=== PATIENT | female | born 1955 | race Caucasian/White ===

== ENCOUNTER 2019-06-18 07:45 | Inpatient (IN) | payer OTHER ==
[2019-06-18] MEDS ORDERED: Sodium Chloride 0.9% 10 ML Syringe FLUSH PRN ×2 (08:14→09:54)
[2019-06-18] MEDS ORDERED: Albuterol/Ipratropium 3.0-0.5 MG/3 ML Neb Soln NEB ONE (08:16)
[2019-06-18] MEDS ORDERED: methylPREDNISolone Sodium Succinate 125 MG/2 ML SDV IVPUSH ONE (08:17)
--- NOTE | 2019-06-18 09:03 | CR ---
Chest: Portable view of the chest was obtained. Comparison: Prior chest x-ray of 04/27/19. Heart size and mediastinum are within normal limits for portable technique. Mild tortuosity of the thoracic aorta is again noted. Lungs are clear with no acute parenchymal change. Bony structures are grossly intact. Impression: 1. Nothing acute is appreciated on portable chest x-ray. Diagnostic code #1
[2019-06-18] MEDS ORDERED: Iopamidol 755 Mg/ML 100 ML Bottle IVPUSH ONE (09:54)
[2019-06-18] MEDS ORDERED: Sodium Chloride 0.9% 100 ML IV SCH (10:00)
--- NOTE | 2019-06-18 10:23 | EDM.PDOC ---
ED HPI GENERAL MEDICAL PROBLEM - General Chief Complaint: Respiratory Problem Stated Complaint: SOB Time Seen by Provider: 06/18/19 08:05 Source of Information: Reports: Patient History Limitations: Reports: No Limitations - History of Present Illness INITIAL COMMENTS - FREE TEXT/NARRATIVE: The patient presents from Cardiac Rehab for shortness of breath. She has a history of COPD and she is on home oxygen but she is weaning herself down. Friday night she started having some aching in her chest. She noticed she was more short of breath yesterday and requiring more oxygen. She had to wear in to cardiac rehab and her oxygen saturations were low. She denies fever, chills, cough, congestion or runny nose. She has no abdominal pain, nausea or vomiting. She recently started having vaginal bleeding and was put on some control pills to control it. She is having a preop physical on Friday and the surgery is scheduled for the in [place] with Dr Gibbs. Her doctor is Dr Garrett. She is not having it here because anaesthesia thinks she is high risk because in the past she did not do well with one surgery. She denies swelling or pain in her legs. She has no history of DVT or PE. She does not smoke. Onset: Gradual Duration: Day(s): Location: Reports: Chest Quality: Reports: Ache Severity: Mild Improves with: Reports: None Worsens with: Reports: None Associated Symptoms: Reports: Chest Pain, Shortness of Breath. Denies: Cough, Fever/Chills, Headaches, Nausea/Vomiting Chest Pain Score (Numeric/FACES): 4 - Related Data Allergies Allergy/AdvReac Type Severity Reaction Status Date / Time No Known Allergies Allergy Verified 06/18/19 07:59 Home Meds: Home Meds Albuterol [IJD: Ventolin HFA] 1 - 2 puff INH Q4HR PRN 05/01/17 [History] Aspirin [Low Dose Aspirin EC] 81 mg PO DAILY 05/01/17 [History] Cholecalciferol (Vitamin D3) [Vitamin D3] 1,000 unit PO DAILY 05/01/17 [History] Hydrocodone/Acetaminophen [Hydrocodon-Acetaminophen 5-325] 1 - 2 tab PO Q12H PRN 05/01/17 [History] Levothyroxine 75 mcg PO ACBREAKFAST 05/01/17 [History] Loratadine [Allergy] 10 mg PO DAILY 05/01/17 [History] Losartan [Cozaar] 50 mg PO BID 05/01/17 [History] Tiotropium Br/Olodaterol HCl [Stiolto Respimat Inhal [place]] 2 puff IH DAILY 04/12 [History] Allopurinol [Zyloprim] 300 mg PO BID 05/05/19 [History] Empagliflozin [Jardiance] 25 mg PO DAILY 05/05/19 [History] Ezetimibe [Zetia] 20 mg PO DAILY 05/05/19 [History] Furosemide [Lasix] 20 mg PO DAILY 05/05/19 [History] Multivitamin [Poly-Vitamin] 1 tab PO DAILY 05/05/19 [History] Pravastatin [Pravachol] 20 mg PO DAILY 05/05/19 [History] Ranitidine [Zantac] 150 mg PO DAILY 05/05/19 [History] Albuterol [Ventolin HFA] 1 puff INH DAILY 06/18/19 [History] Past Medical History HEENT History: Reports: Allergic Rhinitis, Impaired Vision, Other (See Below) Other HEENT History: wears glasses, has upper denture Cardiovascular History: Reports: Heart Failure, Heart Murmur, High Cholesterol, Other (See Below) Other Cardiovascular History: aortic stenosis, angiogram x2 with no stents Respiratory History: Reports: COPD, Sleep Apnea Other Respiratory History: hypoventilation syndrome, cpap at night 2L Genitourinary History: Reports: UTI, Recurrent HR ADVISOR History: Reports: Musculoskeletal History: Reports: Arthritis, Other (See Below) Other Musculoskeletal History: carpal tunnel syndrome, gout Neurological History: Reports: Neuropathy, Diabetic Psychiatric History: Reports: Anxiety, Depression Endocrine/Metabolic History: Reports: Diabetes, Type II, Hypothyroidism Hematologic History: Reports: None Immunologic History: Reports: None Oncologic (Cancer) History: Reports: None Dermatologic History: Reports: Other (See Below) Other Dermatologic History: eczema - Past Surgical History Cardiovascular Surgical History: Reports: None Respiratory Surgical History: Reports: None GI Surgical History: Reports: Bariatric Procedure, Colonoscopy Female Surgical History: Reports: Section Endocrine Surgical History: Reports: Thyroidectomy Neurological Surgical History: Reports: None Musculoskeletal Surgical History: Reports: Joint Replacement Oncologic Surgical History: Reports: None Social & Family History - Tobacco Use Smoking Status *Q: Never Smoker Second Hand Smoke Exposure: No - Caffeine Use Caffeine Use: Reports: Coffee - Recreational Drug Use Recreational Drug Use: No ED ROS GENERAL - Review of Systems Review Of Systems: See Below Constitutional: Reports: No Symptoms HEENT: Reports: No Symptoms Respiratory: Reports: Shortness of Breath. Denies: Cough Cardiovascular: Reports: Chest Pain Endocrine: Reports: No Symptoms GI/Abdominal: Reports: No Symptoms : Reports: No Symptoms Musculoskeletal: Reports: No Symptoms ED EXAM, GENERAL - Physical Exam Exam: See Below Exam Limited By: No Limitations General Appearance: Alert, No Apparent Distress Ears: Normal External Exam Nose: Normal Inspection Head: Atraumatic, Normocephalic Neck: Normal Inspection Respiratory/Chest: No Respiratory Distress, Decreased Breath Sounds Cardiovascular: Regular Rate, Rhythm, No Edema, Systolic Murmur GI/Abdominal: Soft, Non-Tender, No Organomegaly, No Mass Back Exam: Normal Inspection Extremities: Normal Inspection EKG INTERPRETATION EKG Date: 06/18/19 Time: 07:59 Rhythm: NSR Rate (Beats/Min): 79 Amelia: Normal P-Wave: Present QRS: Normal ST-T: Normal QT: Normal EKG Interpretation Comments: Q waves in the anterior leads Course - Vital Signs Last Recorded V/S: Last Vital Signs Temp 97.9 F 06/18/19 07:50 Pulse 80 06/18/19 10:55 Resp 18 06/18/19 10:55 BP 120/60 06/18/19 10:55 Pulse Ox 92 L 06/18/19 10:55 - Orders/Labs/Meds Orders: Active Orders 24 hr Category Date Time Status Cardiac Monitoring [RC] . DIRECTED Care 06/18/19 08:14 Active EKG Documentation Completion [RC] STAT Care 06/18/19 08:14 Active Oxygen Therapy [RC] PRN Care 06/18/19 08:14 Active Peripheral IV Care [RC] . DIRECTED Care 06/18/19 08:15 Active RT Aerosol Therapy [RC] ASDIRECTED Care 06/18/19 08:16 Active Sodium Chloride 0.9% [Normal Saline] 100 ml Med 06/18/19 10:00 Active IV ASDIRECTED Sodium Chloride 0.9% [Saline Flush] Med 06/18/19 08:14 Active 10 ml FLUSH ASDIRECTED PRN Sodium Chloride 0.9% [Saline Flush] Med 06/18/19 09:54 Active 10 ml FLUSH ONETIME PRN Peripheral IV Insertion Adult [OM.PC] Stat Oth 06/18/19 08:14 Ordered Medication Orders Sodium Chloride (Normal Saline) 100 mls @ 75 mls/hr IV ASDIRECTED GAMALIEL Last Admin: 06/18/19 10:23 Dose: 75 mls/hr Sodium Chloride (Saline Flush) 10 ml FLUSH ASDIRECTED PRN PRN Reason: Keep Vein Open Last Admin: 06/18/19 08:25 Dose: 10 ml Sodium Chloride (Saline Flush) 10 ml FLUSH ONETIME PRN PRN Reason: IV FLUSH Last Admin: 06/18/19 10:23 Dose: 10 ml Labs: Laboratory Tests 06/18/19 06/18/19 06/18/19 Range/Units 08:25 08:25 08:25 WBC 8.20 (3.98-10.04) K/mm3 RBC 4.55 (3.98-5.22) M/mm3 Hgb 13.9 (11.2-15.7) gm/L Hct 43.8 (34.1-44.9) % MCV 96.3 H (79.4-94.8) fl MCH 30.5 (25.6-32.2) pg MCHC 31.7 L (32.2-35.5) g/dl RDW Std Deviation 53.1 H (36.4-46.3) fL Plt Count 273 (182-369) K/mm3 MPV 10.4 (9.4-12.3) fl Neut % (Auto) 69.7 (34.0-71.1) % Lymph % (Auto) 20.4 (19.3-51.7) % [place] % (Auto) 7.3 (4.7-12.5) % Eos % (Auto) 2.0 (0.7-5.8) Baso % (Auto) 0.5 (0.1-1.2) % Neut # (Auto) 5.72 (1.56-6.13) K/mm3 Lymph # (Auto) 1.67 (1.18-3.74) K/mm3 [place] # (Auto) 0.60 H (0.24-0.36) K/mm3 Eos # (Auto) 0.16 (0.04-0.36) K/mm3 Baso # (Auto) 0.04 (0.01-0.08) K/mm3 D-Dimer, Quantitative (0.19-0.50) mg/L Sodium 144 (136-145) mEq/L Potassium 4.5 (3.5-5.1) mEq/L Chloride 108 H (98-107) mEq/L Carbon Dioxide 31 (21-32) mEq/L Anion Gap 9.5 (5-15) BUN 16 (7-18) mg/dL Creatinine 1.0 (0.55-1.02) mg/dL Est Cr Clr Drug Dosing 41.36 mL/min Estimated GFR (MDRD) 56 (>60) mL/min BUN/Creatinine Ratio 16.0 (14-18) Glucose 104 (80-115) mg/dL Calcium 9.5 (8.5-10.1) mg/dL Total Bilirubin 0.4 (0.2-1.0) mg/dL AST 12 L (15-37) U/L ALT 19 (14-59) U/L Alkaline Phosphatase 58 (46-116) U/L Troponin I < 0.017 (0.00-0.056) ng/mL NT-Pro-B Natriuret Pep 159 H (0-125) pg/mL Total Protein 7.5 (6.4-8.2) g/dl Albumin 3.5 (3.4-5.0) g/dl Globulin 4.0 gm/dL Albumin/Globulin Ratio 0.9 L (1-2) 06/18/19 Range/Units 08:25 WBC (3.98-10.04) K/mm3 RBC (3.98-5.22) M/mm3 Hgb (11.2-15.7) gm/L Hct (34.1-44.9) % MCV (79.4-94.8) fl MCH (25.6-32.2) pg MCHC (32.2-35.5) g/dl RDW Std Deviation (36.4-46.3) fL Plt Count (182-369) K/mm3 MPV (9.4-12.3) fl Neut % (Auto) (34.0-71.1) % Lymph % (Auto) (19.3-51.7) % [place] % (Auto) (4.7-12.5) % Eos % (Auto) (0.7-5.8) Baso % (Auto) (0.1-1.2) % Neut # (Auto) (1.56-6.13) K/mm3 Lymph # (Auto) (1.18-3.74) K/mm3 [place] # (Auto) (0.24-0.36) K/mm3 Eos # (Auto) (0.04-0.36) K/mm3 Baso # (Auto) (0.01-0.08) K/mm3 D-Dimer, Quantitative 10.45 H (0.19-0.50) mg/L Sodium (136-145) mEq/L Potassium (3.5-5.1) mEq/L Chloride (98-107) mEq/L Carbon Dioxide (21-32) mEq/L Anion Gap (5-15) BUN (7-18) mg/dL Creatinine (0.55-1.02) mg/dL Est Cr Clr Drug Dosing mL/min Estimated GFR (MDRD) (>60) mL/min BUN/Creatinine Ratio (14-18) Glucose (80-115) mg/dL Calcium (8.5-10.1) mg/dL Total Bilirubin (0.2-1.0) mg/dL AST (15-37) U/L ALT (14-59) U/L Alkaline Phosphatase (46-116) U/L Troponin I (0.00-0.056) ng/mL NT-Pro-B Natriuret Pep (0-125) pg/mL Total Protein (6.4-8.2) g/dl Albumin (3.4-5.0) g/dl Globulin gm/dL Albumin/Globulin Ratio (1-2) Meds: Medications Generic Name Dose Route Start Last Admin Trade Name Freq PRN Reason Stop Dose Admin Sodium Chloride 100 mls @ 75 mls/hr 06/18/19 10:00 06/18/19 10:23 Normal Saline IV 75 mls/hr ASDIRECTED GAMALIEL Administration Sodium Chloride 10 ml 06/18/19 08:14 06/18/19 08:25 Saline Flush FLUSH 10 ml ASDIRECTED PRN Administration Keep Vein Open Sodium Chloride 10 ml 06/18/19 09:54 06/18/19 10:23 Saline Flush FLUSH 10 ml ONETIME PRN Administration IV FLUSH Discontinued Medications Generic Name Dose Route Start Last Admin Trade Name Neetu PRN Reason Stop Dose Admin Albuterol/Ipratropium 3 ml 06/18/19 08:16 06/18/19 08:38 Duoneb 3.0-0.5 Mg/3 Ml NEB 06/18/19 08:17 3 ml ONETIME ONE Administration Apixaban 10 mg 06/18/19 11:33 06/18/19 11:43 Eliquis PO 06/18/19 11:34 10 mg ONETIME ONE Administration Iopamidol 100 ml 06/18/19 09:54 06/18/19 10:23 Isovue-370 (76%) IVPUSH 06/18/19 09:55 100 ml ONETIME ONE Administration Methylprednisolone Sodium Succinate 125 mg 06/18/19 08:17 06/18/19 08:36 Solu-Medrol IVPUSH 06/18/19 08:18 125 mg ONETIME ONE Administration - Re-Assessments/Exams Free Text/Narrative Re-Assessment/Exam: 06/18/19 10:25 I ordered oxygen, IV saline lock, EKG, CXR, labs, duoneb and solu-medrol 125mg IV. Her EKG shows a NSR with Q waves in the anterior leads. Her CXR looks good. 06/18/19 10:25 Her CBC and CMP look good. Her troponin looks good. Her BNP was slightly elevated at 159. Her D-dimer was elevated at 10.45. I have ordered a CT angio of her chest. 06/18/19 14:[address] angio of her chest shows less than optimal opacification of the pulmonary arteries due to patient body habitus. Within this limitation pulmonary emboli are seen within the distal right main pulmonary artery extending into the right upper lung pulmonary arteries as well as pulmonary emboli extending into the right lower lung arteries. No evidence of right ventricular dysfunction is seen. Small right sided pleural effusion with minimal right basilar atelectasis. Other findings believed to be incidental. I called her doctor Dr Garrett and he wanted her on eliquis. I feel she may need to be admitted. She is hypoxic with exertion. When she got up to use the bathroom her oxygen saturations dropped to 77%. She recovers well with oxygen. Departure - Departure Time of Disposition: 14:10 Disposition: Admitted As Inpatient 67 Condition: Fair Clinical Impression: Hypoxia Pulmonary emboli Qualifiers: Pulmonary embolism type: other Chronicity: acute Acute cor pulmonale presence: with acute cor pulmonale Qualified Code(s): I26.09 - Other pulmonary embolism with acute cor pulmonale - Discharge Information - My Orders Last 24 Hours: My Active Orders 06/18/19 08:14 Cardiac Monitoring [RC] . DIRECTED EKG Documentation Completion [RC] STAT Oxygen Therapy [RC] PRN Sodium Chloride 0.9% [Saline Flush] 10 ml FLUSH ASDIRECTED PRN Peripheral IV Insertion Adult [OM.PC] Stat 06/18/19 08:15 Peripheral IV Care [RC] . DIRECTED 06/18/19 08:16 RT Aerosol Therapy [RC] ASDIRECTED 06/18/19 09:54 Sodium Chloride 0.9% [Saline Flush] 10 ml FLUSH ONETIME PRN 06/18/19 10:00 Sodium Chloride 0.9% [Normal Saline] 100 ml IV ASDIRECTED - Assessment/Plan Last 24 Hours: My Active Orders 06/18/19 08:14 Cardiac Monitoring [RC] . DIRECTED EKG Documentation Completion [RC] STAT Oxygen Therapy [RC] PRN Sodium Chloride 0.9% [Saline Flush] 10 ml FLUSH ASDIRECTED PRN Peripheral IV Insertion Adult [OM.PC] Stat 06/18/19 08:15 Peripheral IV Care [RC] . DIRECTED 06/18/19 08:16 RT Aerosol Therapy [RC] ASDIRECTED 06/18/19 09:54 Sodium Chloride 0.9% [Saline Flush] 10 ml FLUSH ONETIME PRN 06/18/19 10:00 Sodium Chloride 0.9% [Normal Saline] 100 ml IV ASDIRECTED
--- NOTE | 2019-06-18 10:55 | CT ---
CT chest Technique: Multiple axial sections through the chest were obtained. Intravenous contrast was utilized. Study performed as a pulmonary angiogram protocol. Findings: Pulmonary arteries are not optimally opacified secondary to patient body habitus. Within this limitation, there does appear to be filling defects within the segmental and subsegmental branches of the right lower pulmonary artery compatible with pulmonary embolism. Pulmonary embolism is also noted within the distal right main pulmonary artery extending into the right upper segmental branches. No discrete left-sided pulmonary emboli are seen. Small right sided pleural effusion is seen. Thoracic aorta shows no aneurysm with atherosclerotic calcification being present. No pericardial thickening is seen. Small hiatal hernia is noted with slight esophageal wall thickening most likely representing changes of reflux. Anterior abdominal wall fat-containing hernia is seen. Other visualized portions of the upper abdominal structures shows no discrete abnormality. Mild atelectasis is seen within the right lung base. Lungs otherwise are clear. Incidental note of azygous lobe. Bone window settings were reviewed which shows scattered degenerative change within the spine. No acute osseous abnormality is appreciated. Impression: 1. Less than optimal opacification of the pulmonary arteries due to patient body habitus. 2. Within this limitation pulmonary emboli are seen within the distal right main pulmonary artery extending into the right upper lung pulmonary arteries as well as pulmonary emboli extending into the right lower lung arteries. No evidence of right ventricular dysfunction is seen. 3. Small right sided pleural effusion with minimal right basilar atelectasis. 4. Other findings believed to be incidental as described above. Diagnostic code #5
[2019-06-18] MEDS ORDERED: Apixaban 5 MG Tab PO ONE (11:33)
--- NOTE | 2019-06-18 13:47 | PCM.HP.2 ---
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 She states that over at the rehab she was short of breath and her oxygen was found to be lower than usual. She denies any hx/o coagulopathic disorder, no recent prolonged travel, major surgery or sedentary life. However she states has she been having significant vaginal bleeding and she was put on OCP to control it. Her last OCP dose was this morning. Patient was at the cardiac rehab and she was brought over to ED for further evaluation. Her initial work up shows a fairly unremarkable CBC. Her D-dimer is 10.45. Her Chemistry is significant for Cl of 108, AST of 121, and ProBNP of 159. Her Chest CTA report read as pulmonary emboli are seen within the distal right main pulmonary artery extending into the right upper lung pulmonary arteries as well as pulmonary emboli extending into the right lower lung arteries. No evidence of right ventricular dysfunction. Patient is primarily being admitted for medical management of PE. Chest Pain Score (Numeric/FACES): 4 - Related Data Allergies/Adverse Reactions: Allergies Allergy/AdvReac Type Severity Reaction Status Date / Time No Known Allergies Allergy Verified 06/18/19 15:22 Home Medications: Home Meds Albuterol [IJD: Ventolin HFA] 1 - 2 puff INH Q4HR PRN 05/01/17 [History] Aspirin [Low Dose Aspirin EC] 81 mg PO DAILY 05/01/17 [History] Cholecalciferol (Vitamin D3) [Vitamin D3] 1,000 unit PO DAILY 05/01/17 [History] Hydrocodone/Acetaminophen [Hydrocodon-Acetaminophen 5-325] 1 - 2 tab PO Q12H PRN 05/01/17 [History] Levothyroxine 75 mcg PO ACBREAKFAST 05/01/17 [History] Loratadine [Allergy] 10 mg PO DAILY 05/01/17 [History] Losartan [Cozaar] 50 mg PO BID 05/01/17 [History] Tiotropium Br/Olodaterol HCl [Stiolto Respimat Inhal [place]] 2 puff IH DAILY 04/12 [History] Allopurinol [Zyloprim] 100 mg PO BID 05/05/19 [History] Empagliflozin [Jardiance] 25 mg PO DAILY 05/05/19 [History] Ezetimibe [Zetia] 20 mg PO QPM 05/05/19 [History] Furosemide [Lasix] 20 mg PO DAILY 05/05/19 [History] Multivitamin [Poly-Vitamin] 1 tab PO DAILY 05/05/19 [History] Pravastatin [Pravachol] 20 mg PO DAILY 05/05/19 [History] Ranitidine [Zantac] 150 mg PO DAILY 05/05/19 [History] Albuterol [Ventolin HFA] 1 puff INH DAILY 06/18/19 [History] Vitamin E 1,000 unit PO DAILY 06/18/19 [History] Past Medical History HEENT History: Reports: Allergic Rhinitis, Impaired Vision, Other (See Below) Other HEENT History: wears glasses, has upper denture Cardiovascular History: Reports: Heart Failure, Heart Murmur, High Cholesterol, Other (See Below) Other Cardiovascular History: aortic stenosis, angiogram x2 with no stents Respiratory History: Reports: COPD, Sleep Apnea Other Respiratory History: hypoventilation syndrome, cpap at night 2L Genitourinary History: Reports: UTI, Recurrent OPERATIONS EXAMINER History: Reports: Musculoskeletal History: Reports: Arthritis, Other (See Below) Other Musculoskeletal History: carpal tunnel syndrome, gout Neurological History: Reports: Neuropathy, Diabetic Psychiatric History: Reports: Anxiety, Depression Endocrine/Metabolic History: Reports: Diabetes, Type II, Hypothyroidism Hematologic History: Reports: None Immunologic History: Reports: None Oncologic (Cancer) History: Reports: None Dermatologic History: Reports: Other (See Below) Other Dermatologic History: eczema - Past Surgical History Cardiovascular Surgical History: Reports: None Respiratory Surgical History: Reports: None GI Surgical History: Reports: Bariatric Procedure, Colonoscopy Female Surgical History: Reports: Section Endocrine Surgical History: Reports: Thyroidectomy Neurological Surgical History: Reports: None Musculoskeletal Surgical History: Reports: Joint Replacement Oncologic Surgical History: Reports: None Social & Family History - Tobacco Use Smoking Status *Q: Never Smoker Second Hand Smoke Exposure: No - Caffeine Use Caffeine Use: Reports: Coffee - Recreational Drug Use Recreational Drug Use: No H&P Review of Systems - Review of Systems: Review Of Systems: ROS reveals no pertinent complaints other than HPI. Exam - Exam Exam: See Below - Vital Signs Vital Signs: Last Vital Signs Temp 36.6 C 06/18/19 07:50 Pulse 80 06/18/19 10:55 Resp 18 06/18/19 10:55 BP 120/60 06/18/19 10:55 Pulse Ox 92 L 06/18/19 10:55 Weight: 131.995 kg - Exam Quality Assessment: Supplemental Oxygen General: Alert, Oriented, Cooperative, Mild Distress, Other (Morbidly Obese) HEENT: Conjunctiva Clear, EACs Clear, EOMI, Hearing Intact, Mucosa Moist & [place] , Nares Patent, Normal Nasal Septum, Posterior Pharynx Clear, Pupils Equal, Pupils Reactive, Other (neck is short and thick) Neck: Supple, Trachea Midline, Full Range of Motion. No: Thyromegaly Lungs: Normal Respiratory Effort, Decreased Breath Sounds Cardiovascular: Regular Rate, Regular Rhythm GI/Abdominal Exam: Normal Bowel Sounds, Soft, Non-Tender, No Organomegaly, No Distention, No Abnormal Bruit, Other (Obese) (Female) Exam: Deferred Rectal (Female) Exam: Deferred Back Exam: Normal Inspection, Decreased Range of Motion Extremities: Normal Inspection, Normal Range of Motion, Non-Tender, No Pedal Edema, Normal Capillary Refill Peripheral Pulses: 2+: Dorsalis Pedis (L), Dorsalis Pedis (R) Skin: Warm, Dry, Intact Neuro Extensive - Mental Status: Oriented x3, Normal Cognition, Memory Intact Neuro Extensive - Motor, Sensory, Reflexes: CN II-XII Intact (limited due to body habitus), Abnormal Gait Psychiatric: Alert, Normal Affect, Normal Mood - Patient Data Lab Results Last 24 hrs: Laboratory Results - last 24 hr 06/18/19 06/18/19 06/18/19 Range/Units 08:25 08:25 08:25 WBC 8.20 (3.98-10.04) K/mm3 RBC 4.55 (3.98-5.22) M/mm3 Hgb 13.9 (11.2-15.7) gm/L Hct 43.8 (34.1-44.9) % MCV 96.3 H (79.4-94.8) fl MCH 30.5 (25.6-32.2) pg MCHC 31.7 L (32.2-35.5) g/dl RDW Std Deviation 53.1 H (36.4-46.3) fL Plt Count 273 (182-369) K/mm3 MPV 10.4 (9.4-12.3) fl Neut % (Auto) 69.7 (34.0-71.1) % Lymph % (Auto) 20.4 (19.3-51.7) % [place] % (Auto) 7.3 (4.7-12.5) % Eos % (Auto) 2.0 (0.7-5.8) Baso % (Auto) 0.5 (0.1-1.2) % Neut # (Auto) 5.72 (1.56-6.13) K/mm3 Lymph # (Auto) 1.67 (1.18-3.74) K/mm3 [place] # (Auto) 0.60 H (0.24-0.36) K/mm3 Eos # (Auto) 0.16 (0.04-0.36) K/mm3 Baso # (Auto) 0.04 (0.01-0.08) K/mm3 D-Dimer, Quantitative (0.19-0.50) mg/L Sodium 144 (136-145) mEq/L Potassium 4.5 (3.5-5.1) mEq/L Chloride 108 H (98-107) mEq/L Carbon Dioxide 31 (21-32) mEq/L Anion Gap 9.5 (5-15) BUN 16 (7-18) mg/dL Creatinine 1.0 (0.55-1.02) mg/dL Est Cr Clr Drug Dosing 41.36 mL/min Estimated GFR (MDRD) 56 (>60) mL/min BUN/Creatinine Ratio 16.0 (14-18) Glucose 104 (80-115) mg/dL Calcium 9.5 (8.5-10.1) mg/dL Total Bilirubin 0.4 (0.2-1.0) mg/dL AST 12 L (15-37) U/L ALT 19 (14-59) U/L Alkaline Phosphatase 58 (46-116) U/L Troponin I < 0.017 (0.00-0.056) ng/mL NT-Pro-B Natriuret Pep 159 H (0-125) pg/mL Total Protein 7.5 (6.4-8.2) g/dl Albumin 3.5 (3.4-5.0) g/dl Globulin 4.0 gm/dL Albumin/Globulin Ratio 0.9 L (1-2) 06/18/19 Range/Units 08:25 WBC (3.98-10.04) K/mm3 RBC (3.98-5.22) M/mm3 Hgb (11.2-15.7) gm/L Hct (34.1-44.9) % MCV (79.4-94.8) fl MCH (25.6-32.2) pg MCHC (32.2-35.5) g/dl RDW Std Deviation (36.4-46.3) fL Plt Count (182-369) K/mm3 MPV (9.4-12.3) fl Neut % (Auto) (34.0-71.1) % Lymph % (Auto) (19.3-51.7) % [place] % (Auto) (4.7-12.5) % Eos % (Auto) (0.7-5.8) Baso % (Auto) (0.1-1.2) % Neut # (Auto) (1.56-6.13) K/mm3 Lymph # (Auto) (1.18-3.74) K/mm3 [place] # (Auto) (0.24-0.36) K/mm3 Eos # (Auto) (0.04-0.36) K/mm3 Baso # (Auto) (0.01-0.08) K/mm3 D-Dimer, Quantitative 10.45 H (0.19-0.50) mg/L Sodium (136-145) mEq/L Potassium (3.5-5.1) mEq/L Chloride (98-107) mEq/L Carbon Dioxide (21-32) mEq/L Anion Gap (5-15) BUN (7-18) mg/dL Creatinine (0.55-1.02) mg/dL Est Cr Clr Drug Dosing mL/min Estimated GFR (MDRD) (>60) mL/min BUN/Creatinine Ratio (14-18) Glucose (80-115) mg/dL Calcium (8.5-10.1) mg/dL Total Bilirubin (0.2-1.0) mg/dL AST (15-37) U/L ALT (14-59) U/L Alkaline Phosphatase (46-116) U/L Troponin I (0.00-0.056) ng/mL NT-Pro-B Natriuret Pep (0-125) pg/mL Total Protein (6.4-8.2) g/dl Albumin (3.4-5.0) g/dl Globulin gm/dL Albumin/Globulin Ratio (1-2) Result Diagrams: 06/19/19 05:36 06/19/19 05:36 Problem List Initiated/Reviewed/Updated: Yes Orders Last 24hrs: Active Orders 24 hr Category Date Time Status Patient Status [ADT] Stat ADT 06/18/19 12:40 Active Cardiac Monitoring [RC] . DIRECTED Care 06/18/19 08:14 Active EKG Documentation Completion [RC] STAT Care 06/18/19 08:14 Active Oxygen Therapy [RC] PRN Care 06/18/19 08:14 Active Peripheral IV Care [RC] . DIRECTED Care 06/18/19 08:15 Active RT Aerosol Therapy [RC] ASDIRECTED Care 06/18/19 08:16 Active Heart Healthy Diet [DIET] Diet 06/18/19 Lunch Active Sodium Chloride 0.9% [Normal Saline] 100 ml Med 06/18/19 10:00 Active IV ASDIRECTED Sodium Chloride 0.9% [Saline Flush] Med 06/18/19 08:14 Active 10 ml FLUSH ASDIRECTED PRN Sodium Chloride 0.9% [Saline Flush] Med 06/18/19 09:54 Active 10 ml FLUSH ONETIME PRN Peripheral IV Insertion Adult [OM.PC] Stat Oth 06/18/19 08:14 Ordered Resuscitation Status Routine Resus Stat 06/18/19 13:18 Ordered Medication Orders Sodium Chloride (Normal Saline) 100 mls @ 75 mls/hr IV ASDIRECTED [facility] Last Admin: 06/18/19 10:23 Dose: 75 mls/hr Sodium Chloride (Saline Flush) 10 ml FLUSH ASDIRECTED PRN PRN Reason: Keep Vein Open Last Admin: 06/18/19 08:25 Dose: 10 ml Sodium Chloride (Saline Flush) 10 ml FLUSH ONETIME PRN PRN Reason: IV FLUSH Last Admin: 06/18/19 10:23 Dose: 10 ml Assessment/Plan Comment:: Assessment: Acute: Pulmonary Emboli - 2/2 OCP - Had recent vaginal was put on OCP by Gynecology - No hx/o coagulopathy, recent major surgery, she is not bed bound and no prolonged travel - She however morbidly obese - Worsening shortness of breath started yesterday - Chest CTA confirms PE - D-Dimer of 10.45 - Received Eliquis 10 mg po BID for 7 days then 5 mg po BDI thereafter per her PCP's recommendations Small Right Sided Pleural Effusion with basilar Atelectasis - CTA findings - Incentive Spirometry and Pulmonary Exercise - Continue diuretics Morbid Obesity - BMI of 56.8 - Currently on Jardiance with proven cardiovascular benefit - Patient could benefit with GLP1 inhibitors along with SGLT2 inhibitor - Advised LSM Chronic: AR, Impaired Vision, HF, Heart Murmur, HTN, HLD, GERD, , COPD, LANG on CPAP, OHS, Recurrent UTI, OA/DJD, CTS, Neuropathy Pain, DM2, Hypothyroidism, Eczema, Gout and Morbid Obesity Plan: Admit to [facility] with Tele Routine AM labs AHA/ADA diet Accu-check QID with ISS Fall precautions DVT/GI prophylaxis RT/OT/PT to asses and treat SW/CM for d/c planning Code status: full Additional orders as above Met up with daughter at bedside, updated her about diagnoses, additional tests to be done as well as treatment plan - Mortality Measure Prognosis:: Good
[2019-06-18] MEDS ORDERED: Promethazine 6.25 MG in Sodium Chloride 0.9% 50 ML IV PRN (16:02)
[2019-06-18] MEDS ORDERED: LORazepam 2 MG/ML SDV IV PRN (16:02)
[2019-06-18] MEDS ORDERED: Docusate Sodium 100 MG Cap PO PRN (16:02)
[2019-06-18] MEDS ORDERED: Bisacodyl 5 MG Tab PO PRN (16:02)
[2019-06-18] MEDS ORDERED: Temazepam 7.5 MG Cap PO PRN (16:02)
[2019-06-18] MEDS ORDERED: Acetaminophen/HYDROcodone 325-5 MG Tab PO PRN ×2 (16:02→19:15)
[2019-06-18] MEDS ORDERED: Ondansetron 4 MG/2 ML SDV IV PRN (16:02)
[2019-06-18] MEDS ORDERED: Acetaminophen 325 MG Tab PO PRN (16:02)
[2019-06-18] MEDS ORDERED: Albuterol/Ipratropium 3.0-0.5 MG/3 ML Neb Soln NEB PRN (16:02)
[2019-06-18] MEDS ORDERED: HYDROmorphone 0.5 MG/0.5 ML Syringe IVPUSH PRN (16:02)
--- NOTE | 2019-06-18 17:22 | US ---
Bilateral lower extremity deep venous ultrasound: Duplex and color flow imaging was obtained of the right and left common femoral, proximal greater saphenous, superficial femoral, popliteal, posterior tibial and peroneal veins. Findings: Posterior tibial and peroneal veins were suboptimally seen on both sides and no further comment can be made of these veins. Other more cephalad veins show normal phasic flow, augmentation and compression. Impression: 1. Posterior tibial and peroneal veins are suboptimally seen and no further comment can be made. 2. More cephalad veins show no evidence of deep venous thrombosis within the right or left lower extremities. Diagnostic code #2
[2019-06-18] MEDS ORDERED: Albuterol 6.7 GM Inhaler INH PRN (19:15)
[2019-06-18] MEDS: Apixaban 5 MG Tab PO SCH (21:53)
[2019-06-18] MEDS: Losartan 25 MG Tab PO SCH (21:53)
[2019-06-18] MEDS: Allopurinol 300 MG Tab PO SCH (21:54)
[2019-06-19] MEDS ORDERED: Acetaminophen/HYDROcodone 325-5 MG Tab PO PRN (05:12)
[2019-06-19] MEDS ORDERED: Vitamin E (dl-alpha-tocopherol acetate) 400 Unit Cap PO SCH (05:15)
[2019-06-19] MEDS: Levothyroxine 75 MCG Tab PO SCH (06:48)
[2019-06-19] MEDS ORDERED: VITAMIN E 1000 UNIT PO SCH (09:00)
[2019-06-19] MEDS ORDERED: Non-Formulary Medication 1 Each (Empagliflozin [Jardiance] 25 MG) PO SCH (09:00)
--- NOTE | 2019-06-19 09:44 | PCM.PN ---
- General Info Date of Service: 06/19/19 Admission Dx/Problem (Free Text): Admission Diagnosis/Problem Admission Diagnosis/Problem Pulmonary embolism Subjective Update: Follow Up Functional Status: Reports: Pain Controlled, Tolerating Diet, Ambulating, Urinating. Denies: New Symptoms - Review of Systems General: Denies: Fever, Weakness, Fatigue, Malaise HEENT: Reports: No Symptoms Pulmonary: Reports: No Symptoms Cardiovascular: Denies: Chest Pain, Dyspnea on Exertion, Lightheadedness Gastrointestinal: Denies: Abdominal Pain, Nausea, Vomiting Musculoskeletal: Reports: No Symptoms Neurological: Reports: Gait Disturbance. Denies: Confusion, Difficulty Walking , Weakness Psychiatric: Denies: Depression, Anxiety, Agitation, Hallucinations Systems Review Comment:: No significant overnight issues. She states I feel fine. However she gets hypoxic easily wherein her O2 saturation drops in the 70s even with minimal activities or a few steps. She did not use continues O2 at home but she had to do it here. Otherwise her labs were unremarkable and she has no acute issues. - Patient Data Vitals - Most Recent: Last Vital Signs Temp 36.7 C 06/19/19 04:11 Pulse 79 06/19/19 04:11 Resp 12 06/19/19 04:11 BP 106/59 L 06/19/19 04:11 Pulse Ox 94 L 06/19/19 04:11 Weight - Most Recent: 131.633 kg I&O - Last 24 Hours: Intake & Output 06/18/19 06/19/19 06/19/19 22:59 06:59 14:59 Intake Total 360 800 Output Total 1050 Balance 360 -250 Lab Results Last 24 Hours: Laboratory Results - last 24 hr 06/18/19 06/19/19 06/19/19 Range/Units 08:25 05:36 05:36 WBC 9.92 (3.98-10.04) K/mm3 RBC 4.44 (3.98-5.22) M/mm3 Hgb 13.8 (11.2-15.7) gm/L Hct 42.7 (34.1-44.9) % MCV 96.2 H (79.4-94.8) fl MCH 31.1 (25.6-32.2) pg MCHC 32.3 (32.2-35.5) g/dl RDW Std Deviation 52.3 H (36.4-46.3) fL Plt Count 308 (182-369) K/mm3 MPV 11.0 (9.4-12.3) fl Neut % (Auto) 87.0 H (34.0-71.1) % Lymph % (Auto) 10.5 L (19.3-51.7) % [place] % (Auto) 2.2 L (4.7-12.5) % Eos % (Auto) 0 L (0.7-5.8) Baso % (Auto) 0.1 (0.1-1.2) % Neut # (Auto) 8.63 H (1.56-6.13) K/mm3 Lymph # (Auto) 1.04 L (1.18-3.74) K/mm3 [place] # (Auto) 0.22 L (0.24-0.36) K/mm3 Eos # (Auto) 0.00 L (0.04-0.36) K/mm3 Baso # (Auto) 0.01 (0.01-0.08) K/mm3 Manual Slide Review Abnormal smear D-Dimer, Quantitative 10.45 H (0.19-0.50) mg/L Sodium 141 (136-145) mEq/L Potassium 4.5 (3.5-5.1) mEq/L Chloride 105 (98-107) mEq/L Carbon Dioxide 25 (21-32) mEq/L Anion Gap 15.5 H (5-15) BUN 22 H (7-18) mg/dL Creatinine 1.0 (0.55-1.02) mg/dL Est Cr Clr Drug Dosing 41.36 mL/min Estimated GFR (MDRD) 56 (>60) mL/min BUN/Creatinine Ratio 22.0 H (14-18) Glucose 117 H (80-115) mg/dL Calcium 9.0 (8.5-10.1) mg/dL Magnesium 2.1 (1.8-2.4) mg/dl Med Orders - Current: Current Medications Acetaminophen (Tylenol) 650 mg PO Q4H PRN PRN Reason: Pain (Mild 1-3)/fever Hydrocodone Bitart/Acetaminophen ([place] 325-5 Mg) 1 tab PO Q4H PRN PRN Reason: Pain (moderate 4-6) Hydrocodone Bitart/Acetaminophen ([place] 325-5 Mg) 2 tab PO Q4H PRN PRN Reason: Pain (severe 7-10) Albuterol (Proventil Hfa) 0 gm INH DAILY [facility] Albuterol (Proventil Hfa) 0 gm INH Q4HRRT PRN PRN Reason: Shortness of Breath Albuterol/Ipratropium (Duoneb 3.0-0.5 Mg/3 Ml) 3 ml NEB Q4HRRT PRN PRN Reason: Shortness Of Breath/wheezing Allopurinol (Zyloprim) 300 mg PO BID [facility] Last Admin: 06/18/19 21:54 Dose: 300 mg Apixaban (Eliquis) 10 mg PO BID [facility] Stop: 06/25/19 21:01 Last Admin: 06/18/19 21:53 Dose: 10 mg Aspirin (Halfprin) 81 mg PO DAILY [facility] Bisacodyl (Dulcolax) 5 mg PO DAILY PRN PRN Reason: Constipation Cholecalciferol (Vitamin D3) 25 mcg PO DAILY [facility] Docusate Sodium (Colace) 100 mg PO BID PRN PRN Reason: Constipation Ezetimibe (Zetia) 20 mg PO DAILY [facility] Famotidine (Pepcid) 20 mg PO BEDTIME [facility] Furosemide (Lasix) 20 mg PO DAILY [facility] Glycopyrrolate (Seebri Neohaler) 0 mcg IH BID [facility] Hydromorphone HCl (Dilaudid) 0.25 mg IVPUSH Q2H PRN PRN Reason: Pain (severe 7-10) Promethazine HCl 6.25 mg/ (Sodium Chloride) 50.25 mls @ 100 mls/hr IV Q6H PRN PRN Reason: Nausea/Vomiting Levothyroxine Sodium (Levothyroxine) 75 mcg PO ACBREAKFAST [facility] Last Admin: 06/19/19 06:48 Dose: 75 mcg Loratadine (Claritin) 10 mg PO DAILY [facility] Lorazepam (Ativan) 0.25 mg IV Q6H PRN PRN Reason: Anxiety Losartan Potassium (Cozaar) 50 mg PO BID [facility] Last Admin: 06/18/19 21:53 Dose: 50 mg Multivitamins (Thera) 1 each PO DAILY [facility] Ondansetron HCl (Zofran) 4 mg IV Q6H PRN PRN Reason: Nausea/Vomiting Senna/Docusate Sodium (Senna Plus) 1 tab PO BID PRN PRN Reason: Constipation Simvastatin (Zocor) 10 mg PO DAILY [facility] Sodium Chloride (Saline Flush) 10 ml FLUSH ASDIRECTED PRN PRN Reason: Keep Vein Open Last Admin: 06/18/19 08:25 Dose: 10 ml Sodium Chloride (Saline Flush) 10 ml FLUSH ONETIME PRN PRN Reason: IV FLUSH Last Admin: 06/18/19 10:23 Dose: 10 ml Temazepam (Restoril) 7.5 mg PO BEDTIME PRN PRN Reason: Sleep Vitamin E (Vitamin E) 800 units PO DAILY [facility] Discontinued Medications Hydrocodone Bitart/Acetaminophen ([place] 325-5 Mg) 1 - 2 tab PO Q12H PRN PRN Reason: Pain Last Admin: 06/18/19 21:55 Dose: 1 tab Albuterol/Ipratropium (Duoneb 3.0-0.5 Mg/3 Ml) 3 ml NEB ONETIME ONE Stop: 06/18/19 08:17 Last Admin: 06/18/19 08:38 Dose: 3 ml Apixaban (Eliquis) 10 mg PO ONETIME ONE Stop: 06/18/19 11:34 Last Admin: 06/18/19 11:43 Dose: 10 mg Sodium Chloride (Normal Saline) 100 mls @ 75 mls/hr IV ASDIRECTED [facility] Last Admin: 06/18/19 10:23 Dose: 75 mls/hr Iopamidol (Isovue-370 (76%)) 100 ml IVPUSH ONETIME ONE Stop: 06/18/19 09:55 Last Admin: 06/18/19 10:23 Dose: 100 ml Methylprednisolone Sodium Succinate (Solu-Medrol) 125 mg IVPUSH ONETIME ONE Stop: 06/18/19 08:18 Last Admin: 06/18/19 08:36 Dose: 125 mg Non-Formulary Medication (Empagliflozin [Jardiance]) 25 mg PO DAILY [facility] - Exam Quality Assessment: Supplemental Oxygen General: Alert, Oriented, Other (Morbidly Obese) HEENT: Pupils Equal, Pupils Reactive, EOMI, Mucous Membr. Moist/[place] Neck: Supple, Trachea Midline, No JVD, Other (neck: short and thick) Lungs: Clear to Auscultation (crackles on the right base), Normal Respiratory Effort, Crackles Cardiovascular: Regular Rate, Regular Rhythm GI/Abdominal Exam: Normal Bowel Sounds, Soft, Non-Tender, No Organomegaly, No Distention, No Abnormal Bruit, No Mass (Female) Exam: Deferred Back Exam: Normal Inspection, Decreased Range of Motion Extremities: Normal Inspection, Normal Range of Motion, Non-Tender, No Pedal Edema, Normal Capillary Refill Peripheral Pulses: 2+: Posterior Tibial (L), Posterior Tibial (R), Dorsalis Pedis (L), Dorsalis Pedis (R) Skin: Warm, Dry, Intact Neurological: No New Focal Deficit Psy/Mental Status: Alert, Normal Affect - Problem List Review Problem List Initiated/Reviewed/Updated: Yes - My Orders Last 24 Hours: My Active Orders 06/18/19 13:18 Resuscitation Status Routine 06/18/19 16:02 Height and Weight [RC] 04 Intake and Output [RC] 04,16 Oxygen Therapy [RC] PRN Up With Assistance [RC] ASDIRECTED VTE/DVT Education [RC] 10,22 Vital Signs [RC] Q4HR Consult to Case Management/[place] Pantograph Machine Operator [CONS] Routine Consult to Die Technician [CONS] Routine OT Evaluation and Treatment [CONS] Routine PT Evaluation and Treatment [CONS] Routine Respiratory Care Assess and Treatment [CONS] Routine Acetaminophen [Tylenol] 650 mg PO Q4H PRN Acetaminophen/HYDROcodone [[place] 325-5 MG] 1 tab PO Q4H PRN Albuterol/Ipratropium [DuoNeb 3.0-0.5 MG/3 ML] 3 ml NEB Q4HRRT PRN Bisacodyl [Dulcolax] 5 mg PO DAILY PRN Docusate Sodium [Colace] 100 mg PO BID PRN Docusate Sodium/Sennosides [Senna Plus] 1 tab PO BID PRN HYDROmorphone [Dilaudid] 0.25 mg IVPUSH Q2H PRN LORazepam [Ativan] 0.25 mg IV Q6H PRN Ondansetron [Zofran] 4 mg IV Q6H PRN Promethazine [Phenergan] 6.25 mg Sodium Chloride 0.9% [Normal Saline] 50 ml IV Q6H Temazepam [Restoril] 7.5 mg PO BEDTIME PRN 06/18/19 16:04 RT Aerosol Therapy [RC] ASDIRECTED 06/18/19 19:15 Albuterol [Proventil HFA] 0 gm INH Q4HRRT PRN 06/18/19 21:00 Allopurinol [Zyloprim] 300 mg PO BID Apixaban [Eliquis] 10 mg PO BID Losartan [Cozaar] 50 mg PO BID 06/18/19 Lunch Heart Healthy Diet [DIET] 06/19/19 05:12 Acetaminophen/HYDROcodone [[place] 325-5 MG] 2 tab PO Q4H PRN 06/19/19 06:00 Levothyroxine 75 mcg PO ACBREAKFAST 06/19/19 09:00 Albuterol [Proventil HFA] 0 gm INH DAILY Aspirin [Halfprin] 81 mg PO DAILY Cholecalciferol (Vitamin D3) [Vitamin D3] 25 mcg PO DAILY Ezetimibe [Zetia] 20 mg PO DAILY Furosemide [Lasix] 20 mg PO DAILY Glycopyrrolate [Seebri Neohaler] 0 mcg IH BID Loratadine [Claritin] 10 mg PO DAILY Multivitamins,Therapeutic [Thera] 1 each PO DAILY Simvastatin [Zocor] 10 mg PO DAILY Vitamin E (dl, acetate) [Vitamin E] 800 units PO DAILY 06/19/19 21:00 Famotidine [Pepcid] 20 mg PO BEDTIME 06/20/19 05:11 BASIC METABOLIC PANEL,BMP [CHEM] AM CBC WITH AUTO DIFF [HEME] AM MAGNESIUM [CHEM] AM 06/21/19 05:11 BASIC METABOLIC PANEL,BMP [CHEM] AM CBC WITH AUTO DIFF [HEME] AM MAGNESIUM [CHEM] AM 06/22/19 05:11 BASIC METABOLIC PANEL,BMP [CHEM] AM CBC WITH AUTO DIFF [HEME] AM MAGNESIUM [CHEM] AM 06/23/19 05:11 BASIC METABOLIC PANEL,BMP [CHEM] AM CBC WITH AUTO DIFF [HEME] AM MAGNESIUM [CHEM] AM - Plan Plan:: Assessment: Acute: Pulmonary Emboli - 2/2 OCP - Had recent vaginal was put on OCP by Gynecology - No hx/o coagulopathy, recent major surgery, she is not bed bound and no prolonged travel - She however morbidly obese - Worsening shortness of breath started yesterday - Chest CTA confirms PE; Duplex U/S shows no DVT - D-Dimer of 10.45 - Received Eliquis 10 mg po BID for 7 days then 5 mg po BDI thereafter per her PCP's recommendations; Day 2 Small Right Sided Pleural Effusion with basilar Atelectasis - CTA findings - Incentive Spirometry and Pulmonary Exercise - Continue diuretics Morbid Obesity - BMI of 56.8 - Currently on Jardiance with proven cardiovascular benefit - Patient could benefit with GLP1 inhibitors along with SGLT2 inhibitor - Advised LSM Chronic: AR, Impaired Vision, HF, Heart Murmur, HTN, HLD, GERD, , COPD, LANG on CPAP, OHS, Recurrent UTI, OA/DJD, CTS, Neuropathy Pain, DM2, Hypothyroidism, Eczema, Gout and Morbid Obesity Plan: She is clinically stable but she noticed her O2 sat drops in the 70S even with minimal activities Routine AM labs AHA/ADA diet Accu-check QID with ISS Fall precautions 2D echo to be Friday DVT/GI prophylaxis RT/OT/PT to asses and treat SW/CM for d/c planning Code status: full Additional orders as above Updated her about labs results and possible discharge care plan
[2019-06-19] MEDS: Furosemide 20 MG Tab PO SCH (11:06)
[2019-06-19] MEDS: Ezetimibe 10 MG Tab PO SCH (11:06)
[2019-06-19] MEDS: Aspirin 81 MG Tab.EC PO SCH (11:06)
[2019-06-19] MEDS: Multivitamins,Therapeutic Tab PO SCH (11:06)
[2019-06-19] MEDS: Cholecalciferol (Vitamin D3) 25 MCG Tab PO SCH (11:06)
[2019-06-19] MEDS: Simvastatin 10 MG Tab PO SCH (11:06)
[2019-06-19] MEDS: Allopurinol 300 MG Tab PO SCH ×2 (11:06→21:44)
[2019-06-19] MEDS: Loratadine 10 MG Tab PO SCH (11:06)
[2019-06-19] MEDS: Losartan 25 MG Tab PO SCH ×2 (11:07→21:44)
[2019-06-19] MEDS: Apixaban 5 MG Tab PO SCH ×2 (11:07→21:46)
[2019-06-19] MEDS: Vitamin E (dl-alpha-tocopherol acetate) 400 Unit Cap PO SCH (11:08)
[2019-06-19] MEDS: Glycopyrrolate 15.6 MCG Cap.W.Dev Kit of 6 IH SCH ×2 (11:48→20:15)
[2019-06-19] MEDS: Albuterol 6.7 GM Inhaler INH SCH (11:49)
[2019-06-19] MEDS: EMPAGLIFLOZIN 25 MG PO SCH (16:45)
[2019-06-19] MEDS: Famotidine 20 MG Tab PO SCH (21:46)
[2019-06-20] MEDS: Levothyroxine 75 MCG Tab PO SCH (06:42)
--- NOTE | 2019-06-20 07:25 | PCM.PN ---
- General Info Date of Service: 06/20/19 Admission Dx/Problem (Free Text): Admission Diagnosis/Problem Admission Diagnosis/Problem Pulmonary embolism Subjective Update: Follow Up Functional Status: Reports: Pain Controlled, Tolerating Diet, Ambulating, Urinating. Denies: New Symptoms - Review of Systems General: Denies: Fever, Weakness, Fatigue, Malaise, Chills, Night Sweats HEENT: Reports: No Symptoms Pulmonary: Reports: Shortness of Breath. Denies: Sputum Cardiovascular: Reports: Dyspnea on Exertion. Denies: Chest Pain, Palpitations , Orthopnea, PND, Edema, Lightheadedness Gastrointestinal: Denies: Abdominal Pain, Nausea, Vomiting Genitourinary: Reports: No Symptoms Musculoskeletal: Reports: No Symptoms Skin: Denies: Cyanosis Neurological: Denies: Confusion, Difficulty Walking, Weakness, Gait Disturbance Psychiatric: Denies: Depression, Anxiety, Agitation, Cravings, Hallucinations, Suicidal Ideation Systems Review Comment:: She rested well and had a good night. She feels good and states that her O2 improves to upper 80s now with minimal activities or ambulation. She has no complaints but started having vaginal blood spotting. - Patient Data Vitals - Most Recent: Last Vital Signs Temp 36.7 C 06/20/19 03:46 Pulse 68 06/20/19 03:46 Resp 14 06/20/19 03:46 BP 115/44 L 06/20/19 03:46 Pulse Ox 95 06/20/19 03:46 Weight - Most Recent: 131.179 kg I&O - Last 24 Hours: Intake & Output 06/19/19 06/20/19 06/20/19 22:59 06:59 14:59 Intake Total 1440 800 Output Total 1650 950 Balance -210 -150 Lab Results Last 24 Hours: Laboratory Results - last 24 hr 06/19/19 06/20/19 06/20/19 Range/Units 05:36 06:10 06:10 WBC 9.69 (3.98-10.04) K/mm3 RBC 4.22 (3.98-5.22) M/mm3 Hgb 12.9 (11.2-15.7) gm/L Hct 40.8 (34.1-44.9) % MCV 96.7 H (79.4-94.8) fl MCH 30.6 (25.6-32.2) pg MCHC 31.6 L (32.2-35.5) g/dl RDW Std Deviation 52.1 H (36.4-46.3) fL Plt Count 303 (182-369) K/mm3 MPV 10.6 (9.4-12.3) fl Neut % (Auto) 62.5 (34.0-71.1) % Lymph % (Auto) 29.6 (19.3-51.7) % [place] % (Auto) 7.2 (4.7-12.5) % Eos % (Auto) 0.3 L (0.7-5.8) Baso % (Auto) 0.2 (0.1-1.2) % Neut # (Auto) 6.05 (1.56-6.13) K/mm3 Lymph # (Auto) 2.87 (1.18-3.74) K/mm3 [place] # (Auto) 0.70 H (0.24-0.36) K/mm3 Eos # (Auto) 0.03 L (0.04-0.36) K/mm3 Baso # (Auto) 0.02 (0.01-0.08) K/mm3 Manual Slide Review Abnormal smear Sodium 143 (136-145) mEq/L Potassium 4.1 (3.5-5.1) mEq/L Chloride 109 H (98-107) mEq/L Carbon Dioxide 28 (21-32) mEq/L Anion Gap 10.1 (5-15) BUN 25 H (7-18) mg/dL Creatinine 1.0 (0.55-1.02) mg/dL Est Cr Clr Drug Dosing 41.36 mL/min Estimated GFR (MDRD) 56 (>60) mL/min BUN/Creatinine Ratio 25.0 H (14-18) Glucose 86 (80-115) mg/dL Calcium 8.7 (8.5-10.1) mg/dL Magnesium 2.1 (1.8-2.4) mg/dl Med Orders - Current: Current Medications Acetaminophen (Tylenol) 650 mg PO Q4H PRN PRN Reason: Pain (Mild 1-3)/fever Hydrocodone Bitart/Acetaminophen ([place] 325-5 Mg) 1 tab PO Q4H PRN PRN Reason: Pain (moderate 4-6) Hydrocodone Bitart/Acetaminophen ([place] 325-5 Mg) 2 tab PO Q4H PRN PRN Reason: Pain (severe 7-10) Albuterol (Proventil Hfa) 0 gm INH DAILY [facility] Last Admin: 06/19/19 11:49 Dose: 1 puff Albuterol (Proventil Hfa) 0 gm INH Q4HRRT PRN PRN Reason: Shortness of Breath Albuterol/Ipratropium (Duoneb 3.0-0.5 Mg/3 Ml) 3 ml NEB Q4HRRT PRN PRN Reason: Shortness Of Breath/wheezing Allopurinol (Zyloprim) 300 mg PO BID [facility] Last Admin: 06/19/19 21:44 Dose: 300 mg Apixaban (Eliquis) 10 mg PO BID [facility] Stop: 06/25/19 21:01 Last Admin: 06/19/19 21:46 Dose: 10 mg Aspirin (Halfprin) 81 mg PO DAILY [facility] Last Admin: 06/19/19 11:06 Dose: 81 mg Bisacodyl (Dulcolax) 5 mg PO DAILY PRN PRN Reason: Constipation Cholecalciferol (Vitamin D3) 25 mcg PO DAILY [facility] Last Admin: 06/19/19 11:06 Dose: 25 mcg Docusate Sodium (Colace) 100 mg PO BID PRN PRN Reason: Constipation Ezetimibe (Zetia) 20 mg PO DAILY [facility] Last Admin: 06/19/19 11:06 Dose: 20 mg Famotidine (Pepcid) 20 mg PO BEDTIME [facility] Last Admin: 06/19/19 21:46 Dose: 20 mg Furosemide (Lasix) 20 mg PO DAILY [facility] Last Admin: 06/19/19 11:06 Dose: 20 mg Glycopyrrolate (Seebri Neohaler) 0 mcg IH BID [facility] Last Admin: 06/19/19 20:15 Dose: 1 inhalation Hydromorphone HCl (Dilaudid) 0.25 mg IVPUSH Q2H PRN PRN Reason: Pain (severe 7-10) Promethazine HCl 6.25 mg/ (Sodium Chloride) 50.25 mls @ 100 mls/hr IV Q6H PRN PRN Reason: Nausea/Vomiting Levothyroxine Sodium (Levothyroxine) 75 mcg PO ACBREAKFAST [facility] Last Admin: 06/20/19 06:42 Dose: 75 mcg Loratadine (Claritin) 10 mg PO DAILY [facility] Last Admin: 06/19/19 11:06 Dose: 10 mg Lorazepam (Ativan) 0.25 mg IV Q6H PRN PRN Reason: Anxiety Losartan Potassium (Cozaar) 50 mg PO BID [facility] Last Admin: 06/19/19 21:44 Dose: 50 mg Multivitamins (Thera) 1 each PO DAILY [facility] Last Admin: 06/19/19 11:06 Dose: 1 each Empagliflozin ( Jardiance) 25 Mg Tab Own Med 0 mg PO DAILY [facility] Last Admin: 06/19/19 16:45 Dose: 25 mg Ondansetron HCl (Zofran) 4 mg IV Q6H PRN PRN Reason: Nausea/Vomiting Senna/Docusate Sodium (Senna Plus) 1 tab PO BID PRN PRN Reason: Constipation Simvastatin (Zocor) 10 mg PO DAILY [facility] Last Admin: 06/19/19 11:06 Dose: 10 mg Sodium Chloride (Saline Flush) 10 ml FLUSH ASDIRECTED PRN PRN Reason: Keep Vein Open Last Admin: 06/18/19 08:25 Dose: 10 ml Sodium Chloride (Saline Flush) 10 ml FLUSH ONETIME PRN PRN Reason: IV FLUSH Last Admin: 06/18/19 10:23 Dose: 10 ml Temazepam (Restoril) 7.5 mg PO BEDTIME PRN PRN Reason: Sleep Vitamin E (Vitamin E) 800 units PO DAILY [facility] Last Admin: 06/19/19 11:08 Dose: 800 units Discontinued Medications Hydrocodone Bitart/Acetaminophen ([place] 325-5 Mg) 1 - 2 tab PO Q12H PRN PRN Reason: Pain Last Admin: 06/18/19 21:55 Dose: 1 tab Albuterol/Ipratropium (Duoneb 3.0-0.5 Mg/3 Ml) 3 ml NEB ONETIME ONE Stop: 06/18/19 08:17 Last Admin: 06/18/19 08:38 Dose: 3 ml Apixaban (Eliquis) 10 mg PO ONETIME ONE Stop: 06/18/19 11:34 Last Admin: 06/18/19 11:43 Dose: 10 mg Sodium Chloride (Normal Saline) 100 mls @ 75 mls/hr IV ASDIRECTED [facility] Last Admin: 06/18/19 10:23 Dose: 75 mls/hr Iopamidol (Isovue-370 (76%)) 100 ml IVPUSH ONETIME ONE Stop: 06/18/19 09:55 Last Admin: 06/18/19 10:23 Dose: 100 ml Methylprednisolone Sodium Succinate (Solu-Medrol) 125 mg IVPUSH ONETIME ONE Stop: 06/18/19 08:18 Last Admin: 06/18/19 08:36 Dose: 125 mg Non-Formulary Medication (Empagliflozin [Jardiance]) 25 mg PO DAILY [facility] - Exam Quality Assessment: Supplemental Oxygen General: Alert, Oriented, Cooperative, No Acute Distress, Other (Morbidly Obese) HEENT: Pupils Equal, Pupils Reactive, EOMI, Mucous Membr. Moist/[place] Neck: Supple, No JVD, No Thyromegaly, +2 Carotid Pulse wo Bruit, Other (neck: short and thick) Lungs: Normal Respiratory Effort, Decreased Breath Sounds Cardiovascular: Regular Rate, Regular Rhythm GI/Abdominal Exam: Normal Bowel Sounds, Soft, Non-Tender, No Organomegaly, No Distention, No Abnormal Bruit, No Mass (Female) Exam: Deferred Back Exam: Normal Inspection, Decreased Range of Motion Extremities: Normal Inspection, Normal Range of Motion, Non-Tender, No Pedal Edema, Normal Capillary Refill Peripheral Pulses: 2+: Posterior Tibial (L), Posterior Tibial (R), Dorsalis Pedis (L), Dorsalis Pedis (R) Skin: Warm, Dry, Intact Neurological: No New Focal Deficit. No: Normal Gait Psy/Mental Status: Alert, Normal Affect, Normal Mood - Problem List Review Problem List Initiated/Reviewed/Updated: Yes - My Orders Last 24 Hours: My Active Orders 06/19/19 09:00 Albuterol [Proventil HFA] 0 gm INH DAILY Aspirin [Halfprin] 81 mg PO DAILY Cholecalciferol (Vitamin D3) [Vitamin D3] 25 mcg PO DAILY Ezetimibe [Zetia] 20 mg PO DAILY Furosemide [Lasix] 20 mg PO DAILY Glycopyrrolate [Seebri Neohaler] 0 mcg IH BID Loratadine [Claritin] 10 mg PO DAILY Multivitamins,Therapeutic [Thera] 1 each PO DAILY Simvastatin [Zocor] 10 mg PO DAILY Vitamin E (dl, acetate) [Vitamin E] 800 units PO DAILY 06/19/19 09:46 Incentive Spirometry [RT Incentive Spirometry] [RC] Q2HWA 06/19/19 16:45 Empagliflozin [Jardiance] 0 mg PO DAILY 06/19/19 21:00 Famotidine [Pepcid] 20 mg PO BEDTIME 06/21/19 05:11 BASIC METABOLIC PANEL,BMP [CHEM] AM CBC WITH AUTO DIFF [HEME] AM MAGNESIUM [CHEM] AM 06/22/19 05:11 BASIC METABOLIC PANEL,BMP [CHEM] AM CBC WITH AUTO DIFF [HEME] AM MAGNESIUM [CHEM] AM 06/23/19 05:11 BASIC METABOLIC PANEL,BMP [CHEM] AM CBC WITH AUTO DIFF [HEME] AM MAGNESIUM [CHEM] AM - Plan Plan:: Assessment: Acute: Pulmonary Emboli - 2/2 OCP - Had recent vaginal was put on OCP by Gynecology - No hx/o coagulopathy, recent major surgery, she is not bed bound and no prolonged travel - She however morbidly obese - Worsening shortness of breath started yesterday - Chest CTA confirms PE; Duplex U/S shows no DVT - D-Dimer of 10.45 - Received Eliquis 10 mg po BID for 7 days then 5 mg po BDI thereafter per her PCP's recommendations; Day 2 Small Right Sided Pleural Effusion with basilar Atelectasis - CTA findings - Incentive Spirometry and Pulmonary Exercise - Continue diuretics Morbid Obesity - BMI of 56.8 - Currently on Jardiance with proven cardiovascular benefit - Patient could benefit with GLP1 inhibitors along with SGLT2 inhibitor - Advised LSM Chronic: AR, Impaired Vision, HF, Heart Murmur, HTN, HLD, GERD, , COPD, LANG on CPAP, OHS, Recurrent UTI, OA/DJD, CTS, Neuropathy Pain, DM2, Hypothyroidism, Eczema, Gout and Morbid Obesity Plan: She is clinically stable and now her O2 sat drops in the mid 80s with minimal activities Routine AM labs AHA/ADA diet Accu-check QID with ISS Fall precautions 2D echo in AM Dietary consult for weight management DVT/GI prophylaxis RT/OT/PT to asses and treat SW/CM for d/c planning Code status: full Additional orders as above Updated her about labs results and possible discharge care plan
[2019-06-20] MEDS: Cholecalciferol (Vitamin D3) 25 MCG Tab PO SCH (08:19)
[2019-06-20] MEDS: Multivitamins,Therapeutic Tab PO SCH (08:19)
[2019-06-20] MEDS: Aspirin 81 MG Tab.EC PO SCH (08:19)
[2019-06-20] MEDS: Simvastatin 10 MG Tab PO SCH (08:19)
[2019-06-20] MEDS: Apixaban 5 MG Tab PO SCH ×2 (08:19→21:09)
[2019-06-20] MEDS: Furosemide 20 MG Tab PO SCH (08:19)
[2019-06-20] MEDS: Losartan 25 MG Tab PO SCH ×2 (08:20→21:10)
[2019-06-20] MEDS: Ezetimibe 10 MG Tab PO SCH (08:20)
[2019-06-20] MEDS: Loratadine 10 MG Tab PO SCH (08:20)
[2019-06-20] MEDS: Vitamin E (dl-alpha-tocopherol acetate) 400 Unit Cap PO SCH (08:21)
[2019-06-20] MEDS: EMPAGLIFLOZIN 25 MG PO SCH (08:21)
[2019-06-20] MEDS: Glycopyrrolate 15.6 MCG Cap.W.Dev Kit of 6 IH SCH ×2 (08:52→20:41)
[2019-06-20] MEDS: Albuterol 6.7 GM Inhaler INH SCH (08:52)
[2019-06-20] MEDS: Allopurinol 100 MG Tab PO SCH ×2 (09:28→21:11)
[2019-06-20] MEDS: Famotidine 20 MG Tab PO SCH (21:10)
[2019-06-21] MEDS: Levothyroxine 75 MCG Tab PO SCH (05:38)
[2019-06-21 08:17] VITALS: BP 132/74
[2019-06-21] MEDS: Albuterol 6.7 GM Inhaler INH SCH (08:38)
[2019-06-21] MEDS: Glycopyrrolate 15.6 MCG Cap.W.Dev Kit of 6 IH SCH (08:38)
[2019-06-21] MEDS: Loratadine 10 MG Tab PO SCH (08:48)
[2019-06-21] MEDS: Multivitamins,Therapeutic Tab PO SCH (08:48)
[2019-06-21] MEDS: Cholecalciferol (Vitamin D3) 25 MCG Tab PO SCH (08:48)
[2019-06-21] MEDS: Losartan 25 MG Tab PO SCH (08:49)
[2019-06-21] MEDS: Apixaban 5 MG Tab PO SCH (08:51)
[2019-06-21] MEDS: Aspirin 81 MG Tab.EC PO SCH (08:52)
[2019-06-21] MEDS: Allopurinol 100 MG Tab PO SCH (08:53)
[2019-06-21] MEDS: Ezetimibe 10 MG Tab PO SCH (08:53)
[2019-06-21] MEDS: Furosemide 20 MG Tab PO SCH (08:53)
[2019-06-21] MEDS: Vitamin E (dl-alpha-tocopherol acetate) 400 Unit Cap PO SCH (08:54)
[2019-06-21] MEDS: Simvastatin 10 MG Tab PO SCH (08:54)
[2019-06-21] MEDS: EMPAGLIFLOZIN 25 MG PO SCH (08:55)
--- NOTE | 2019-06-21 09:10 | PCM.DCSUM1 ---
Discharge Summary - Hospital Course Brief History: This is a 64 yo white female with past medical hx/o AR, Impaired Vision, HF, Heart Murmur, HTN, HLD, GERD, , COPD, LANG on CPAP, OHS, Recurrent UTI, OA/DJD, CTS, Neuropathy Pain, DM2, Hypothyroidism, Eczema, Gout and Morbid Obesity who presents to ED with worsening shortness of breath and having to use more oxygen due to low oxygenation. She states that over at the rehab she was short of breath and her oxygen was found to be lower than usual. She denies any hx/o coagulopathic disorder, no recent prolonged travel, major surgery or sedentary life. However she states has she been having significant vaginal bleeding and she was put on OCP to control it. Her last OCP dose was this morning. Patient was at the cardiac rehab and she was brought over to ED for further evaluation. Her initial work up shows a fairly unremarkable CBC. Her D- dimer is 10.45. Her Chemistry is significant for Cl of 108, AST of 121, and ProBNP of 159. Her Chest CTA report read as pulmonary emboli are seen within the distal right main pulmonary artery extending into the right upper lung pulmonary arteries as well as pulmonary emboli extending into the right lower lung arteries. No evidence of right ventricular dysfunction. Patient is primarily being admitted for medical management of PE. Diagnosis: Stroke: No Modified Concepcion Scale: No Symptoms at All Modified Baird Scale Score: 0 - Discharge Data Discharge Date: 06/21/19 Discharge Disposition: Home, Self-Care 01 Condition: Good - Discharge Diagnosis/Problem(s) (1) Pulmonary emboli SNOMED Code(s): 81134905 ICD Code: I26.99 - OTHER PULMONARY EMBOLISM WITHOUT ACUTE COR PULMONALE Status: Acute Qualifiers: Pulmonary embolism type: other Chronicity: acute Acute cor pulmonale presence: without acute cor pulmonale Qualified Code(s): I26.99 - Other pulmonary embolism without acute cor pulmonale (2) Pleural effusion SNOMED Code(s): 10535682 ICD Code: J90 - PLEURAL EFFUSION, NOT ELSEWHERE CLASSIFIED Status: Acute (3) Morbid (severe) obesity due to excess calories SNOMED Code(s): 192815087, 156826989 ICD Code: E66.01 - MORBID (SEVERE) OBESITY DUE TO EXCESS CALORIES Status: Chronic - Patient Summary/Data Operative Procedure(s) Performed: None Complications: None Consults: Consultations 06/18/19 16:02 Consult to Case Management/Private Client Advisor [CONS] Routine Consult to Shop Helper [CONS] Routine OT Evaluation and Treatment [CONS] Routine PT Evaluation and Treatment [CONS] Routine Respiratory Care Assess and Treatment [CONS] Routine Labs Pending at D/C: None Recommended Follow-up Testing/Procedures: None Planned Operative Procedure(s) after DC: None Hospital Course: Patient was primarily admitted for worsening shortness of breath and hypoxia while at the cardiac rehab center and was diagnosed with pulmonary emboli with small right sided pleural effusion on chest CTA. We felt her pulmonary emboli was due to her recent use of control pill to stop her vaginal bleeding. However we still recommend hypercoagulable work up after completion of her treatment in 3-6 months. Her hospital course was uncomplicated and the rest of her chronic medical illness remained stable during this hospitalization. Patient was stable upon discharge and she was released from the hospital to see her PCP at the clinic for follow up appointment. Patient will be on Eliquis 10 mg po BID for 3.5 more days then 5 mg po BID thereafter. - Patient Instructions Diet: Heart Healthy Diet, Diabetic Diet, Weight Loss Diet Activity: As Tolerated Driving: Do Not Drive Showering/Bathing: May Shower Notify Provider of: Fever, Increased Pain, Swelling and Redness, Nausea and/or Vomiting Other/Special Instructions: - Please take new medications aa directed. - Resume routine home medications and activity as tolerated. - Recommned hypercoagulable work up after treatment. - Call or follow up with your doctor for any concerns or issues after discharge. - Follow up with your doctor in 1 week. - Come back or seek immediate care should your symptoms persist or get worse - Discharge Plan *PRESCRIPTION DRUG MONITORING PROGRAM REVIEWED*: Not Applicable *COPY OF PRESCRIPTION DRUG MONITORING REPORT IN PATIENT KISHAN: Not Applicable Prescriptions/Med Rec: Apixaban [Eliquis] 5 mg PO ASDIRECTED #60 tablet Home Medications: Home Meds Albuterol [IJD: Ventolin HFA] 1 - 2 puff INH Q4HR PRN 05/01/17 [History] Aspirin [Low Dose Aspirin EC] 81 mg PO DAILY 05/01/17 [History] Cholecalciferol (Vitamin D3) [Vitamin D3] 1,000 unit PO DAILY 05/01/17 [History] Hydrocodone/Acetaminophen [Hydrocodon-Acetaminophen 5-325] 1 - 2 tab PO Q12H PRN 05/01/17 [History] Levothyroxine 75 mcg PO ACBREAKFAST 05/01/17 [History] Loratadine [Allergy] 10 mg PO DAILY 05/01/17 [History] Losartan [Cozaar] 50 mg PO BID 05/01/17 [History] Tiotropium Br/Olodaterol HCl [Stiolto Respimat Inhal [place]] 2 puff IH DAILY 04/12 [History] Allopurinol [Zyloprim] 100 mg PO BID 05/05/19 [History] Empagliflozin [Jardiance] 25 mg PO DAILY 05/05/19 [History] Ezetimibe [Zetia] 20 mg PO QPM 05/05/19 [History] Furosemide [Lasix] 20 mg PO DAILY 05/05/19 [History] Multivitamin [Poly-Vitamin] 1 tab PO DAILY 05/05/19 [History] Pravastatin [Pravachol] 20 mg PO DAILY 05/05/19 [History] Ranitidine [Zantac] 150 mg PO DAILY 05/05/19 [History] Albuterol [Ventolin HFA] 1 puff INH DAILY 06/18/19 [History] Vitamin E 1,000 unit PO DAILY 06/18/19 [History] Apixaban [Eliquis] 5 mg PO ASDIRECTED #60 tablet 06/21/19 [Rx] Oxygen Therapy Mode: Nasal Cannula Patient Handouts: Preventing Health Risks of Being Overweight, Pulmonary Embolism, Pleural Effusion Referrals: Albaro Mckeon MD [Primary Care Provider] - 06/21/19 2:00 pm - Discharge Summary/Plan Comment DC Time >30 min.: No Discharge Summary/Plan Comment: Discharge to Home - General Info Date of Service: 06/21/19 Admission Dx/Problem (Free Text: Admission Diagnosis/Problem Admission Diagnosis/Problem Pulmonary embolism Subjective Update: Follow Up Functional Status: Reports: Pain Controlled, Tolerating Diet, Ambulating, Urinating, New Symptoms - Review of Systems General: Denies: Fever, Weakness, Night Sweats HEENT: Reports: No Symptoms Pulmonary: Reports: Shortness of Breath (baseline). Denies: Pleuritic Chest Pain Cardiovascular: Denies: Chest Pain, Dyspnea on Exertion, Orthopnea, Edema, Lightheadedness Gastrointestinal: Denies: Abdominal Pain, Nausea, Vomiting Genitourinary: Reports: No Symptoms Musculoskeletal: Reports: No Symptoms Skin: Denies: Cyanosis, Diaphoresis, Dryness, Bruising, Pruritis Neurological: Reports: Gait Disturbance. Denies: Difficulty Walking, Weakness Psychiatric: Denies: Confusion, Depression, Anxiety, Agitation, Hallucinations, Suicidal Ideation, Homicidal Ideation Systems Review Comment: No overnight or acute issues. She is doing relatively well. She feels pretty good this morning. - Patient Data Vitals - Most Recent: Last Vital Signs Temp 36.1 C 06/21/19 08:10 Pulse 69 06/21/19 08:10 Resp 18 06/21/19 08:10 BP 132/74 06/21/19 08:49 Pulse Ox 97 06/21/19 08:39 Weight - Most Recent: 131.995 kg I&O - Last 24 hours: Intake & Output 06/20/19 06/21/19 06/21/19 22:59 06:59 14:59 Intake Total 720 800 Output Total 750 1600 Balance -30 -800 Lab Results - Last 24 hrs: Laboratory Results - last 24 hr 06/21/19 06/21/19 Range/Units 05:19 05:19 WBC 8.71 (3.98-10.04) K/mm3 RBC 4.33 (3.98-5.22) M/mm3 Hgb 13.2 (11.2-15.7) gm/L Hct 41.9 (34.1-44.9) % MCV 96.8 H (79.4-94.8) fl MCH 30.5 (25.6-32.2) pg MCHC 31.5 L (32.2-35.5) g/dl RDW Std Deviation 52.0 H (36.4-46.3) fL Plt Count 290 (182-369) K/mm3 MPV 10.6 (9.4-12.3) fl Neut % (Auto) 52.9 (34.0-71.1) % Lymph % (Auto) 36.1 (19.3-51.7) % [place] % (Auto) 7.6 (4.7-12.5) % Eos % (Auto) 2.6 (0.7-5.8) Baso % (Auto) 0.6 (0.1-1.2) % Neut # (Auto) 4.61 (1.56-6.13) K/mm3 Lymph # (Auto) 3.14 (1.18-3.74) K/mm3 [place] # (Auto) 0.66 H (0.24-0.36) K/mm3 Eos # (Auto) 0.23 (0.04-0.36) K/mm3 Baso # (Auto) 0.05 (0.01-0.08) K/mm3 Sodium 141 (136-145) mEq/L Potassium 4.1 (3.5-5.1) mEq/L Chloride 107 (98-107) mEq/L Carbon Dioxide 26 (21-32) mEq/L Anion Gap 12.1 (5-15) BUN 26 H (7-18) mg/dL Creatinine 0.9 (0.55-1.02) mg/dL Est Cr Clr Drug Dosing 45.96 mL/min Estimated GFR (MDRD) > 60 (>60) mL/min BUN/Creatinine Ratio 28.9 H (14-18) Glucose 86 (80-115) mg/dL Calcium 8.8 (8.5-10.1) mg/dL Magnesium 2.0 (1.8-2.4) mg/dl Med Orders - Current: Current Medications Acetaminophen (Tylenol) 650 mg PO Q4H PRN PRN Reason: Pain (Mild 1-3)/fever Hydrocodone Bitart/Acetaminophen ([place] 325-5 Mg) 1 tab PO Q4H PRN PRN Reason: Pain (moderate 4-6) Hydrocodone Bitart/Acetaminophen ([place] 325-5 Mg) 2 tab PO Q4H PRN PRN Reason: Pain (severe 7-10) Albuterol (Proventil Hfa) 0 gm INH DAILY [facility] Last Admin: 06/21/19 08:38 Dose: 1 puff Albuterol (Proventil Hfa) 0 gm INH Q4HRRT PRN PRN Reason: Shortness of Breath Albuterol/Ipratropium (Duoneb 3.0-0.5 Mg/3 Ml) 3 ml NEB Q4HRRT PRN PRN Reason: Shortness Of Breath/wheezing Allopurinol (Zyloprim) 100 mg PO BID [facility] Last Admin: 06/21/19 08:53 Dose: 100 mg Apixaban (Eliquis) 10 mg PO BID [facility] Stop: 06/25/19 21:01 Last Admin: 06/21/19 08:51 Dose: 10 mg Aspirin (Halfprin) 81 mg PO DAILY [facility] Last Admin: 06/21/19 08:52 Dose: 81 mg Bisacodyl (Dulcolax) 5 mg PO DAILY PRN PRN Reason: Constipation Cholecalciferol (Vitamin D3) 25 mcg PO DAILY [facility] Last Admin: 06/21/19 08:48 Dose: 25 mcg Docusate Sodium (Colace) 100 mg PO BID PRN PRN Reason: Constipation Ezetimibe (Zetia) 20 mg PO DAILY [facility] Last Admin: 06/21/19 08:53 Dose: 20 mg Famotidine (Pepcid) 20 mg PO BEDTIME [facility] Last Admin: 06/20/19 21:10 Dose: 20 mg Furosemide (Lasix) 20 mg PO DAILY [facility] Last Admin: 06/21/19 08:53 Dose: 20 mg Glycopyrrolate (Seebri Neohaler) 0 mcg IH BID [facility] Last Admin: 06/21/19 08:38 Dose: 1 inhalation Hydromorphone HCl (Dilaudid) 0.25 mg IVPUSH Q2H PRN PRN Reason: Pain (severe 7-10) Promethazine HCl 6.25 mg/ (Sodium Chloride) 50.25 mls @ 100 mls/hr IV Q6H PRN PRN Reason: Nausea/Vomiting Levothyroxine Sodium (Levothyroxine) 75 mcg PO ACBREAKFAST [facility] Last Admin: 06/21/19 05:38 Dose: 75 mcg Loratadine (Claritin) 10 mg PO DAILY [facility] Last Admin: 06/21/19 08:48 Dose: 10 mg Lorazepam (Ativan) 0.25 mg IV Q6H PRN PRN Reason: Anxiety Losartan Potassium (Cozaar) 50 mg PO BID [facility] Last Admin: 06/21/19 08:49 Dose: 50 mg Multivitamins (Thera) 1 each PO DAILY [facility] Last Admin: 06/21/19 08:48 Dose: 1 each Empagliflozin ( Jardiance) 25 Mg Tab Own Med 0 mg PO DAILY [facility] Last Admin: 06/21/19 08:55 Dose: 25 mg Ondansetron HCl (Zofran) 4 mg IV Q6H PRN PRN Reason: Nausea/Vomiting Senna/Docusate Sodium (Senna Plus) 1 tab PO BID PRN PRN Reason: Constipation Simvastatin (Zocor) 10 mg PO DAILY [facility] Last Admin: 06/21/19 08:54 Dose: 10 mg Sodium Chloride (Saline Flush) 10 ml FLUSH ASDIRECTED PRN PRN Reason: Keep Vein Open Last Admin: 06/18/19 08:25 Dose: 10 ml Temazepam (Restoril) 7.5 mg PO BEDTIME PRN PRN Reason: Sleep Vitamin E (Vitamin E) 800 units PO DAILY [facility] Last Admin: 06/21/19 08:54 Dose: 800 units Discontinued Medications Hydrocodone Bitart/Acetaminophen ([place] 325-5 Mg) 1 - 2 tab PO Q12H PRN PRN Reason: Pain Last Admin: 06/18/19 21:55 Dose: 1 tab Albuterol/Ipratropium (Duoneb 3.0-0.5 Mg/3 Ml) 3 ml NEB ONETIME ONE Stop: 06/18/19 08:17 Last Admin: 06/18/19 08:38 Dose: 3 ml Allopurinol (Zyloprim) 300 mg PO BID [facility] Last Admin: 06/19/19 21:44 Dose: 300 mg Apixaban (Eliquis) 10 mg PO ONETIME ONE Stop: 06/18/19 11:34 Last Admin: 06/18/19 11:43 Dose: 10 mg Sodium Chloride (Normal Saline) 100 mls @ 75 mls/hr IV ASDIRECTED [facility] Last Admin: 06/18/19 10:23 Dose: 75 mls/hr Iopamidol (Isovue-370 (76%)) 100 ml IVPUSH ONETIME ONE Stop: 06/18/19 09:55 Last Admin: 06/18/19 10:23 Dose: 100 ml Methylprednisolone Sodium Succinate (Solu-Medrol) 125 mg IVPUSH ONETIME ONE Stop: 06/18/19 08:18 Last Admin: 06/18/19 08:36 Dose: 125 mg Non-Formulary Medication (Empagliflozin [Jardiance]) 25 mg PO DAILY [facility] Sodium Chloride (Saline Flush) 10 ml FLUSH ONETIME PRN PRN Reason: IV FLUSH Last Admin: 06/18/19 10:23 Dose: 10 ml - Exam General: Reports: Alert, Oriented, Cooperative, No Acute Distress, Other ( Morbid Obesity) HEENT: Reports: Pupils Equal, Pupils Reactive, EOMI, Mucous Membr. Moist/[place] Neck: Reports: Supple, Trachea Midline, No JVD Lungs: Reports: Clear to Auscultation, Normal Respiratory Effort, Decreased Breath Sounds Cardiovascular: Reports: Regular Rate, Regular Rhythm GI/Abdominal Exam: Normal Bowel Sounds, Soft, Non-Tender, No Organomegaly, No Distention, No Abnormal Bruit, No Mass, Pelvis Stable, Other (Morbidly Obese) (Female) Exam: Deferred Rectal (Female) Exam: Deferred Back Exam: Reports: Normal Inspection, Decreased Range of Motion Extremities: Normal Inspection, Normal Range of Motion, Non-Tender, No Pedal Edema, Normal Capillary Refill Skin: Reports: Warm, Dry, Intact Neurological: Reports: No New Focal Deficit Psy/Mental Status: Reports: Alert, Normal Affect, Normal Mood
== END 2019-06-21 14:32 | disposition home or self-care (01) | DRG 176 ==
LOC: JD.ED 07:45 → UNDOADMIN 11:57 → JD.MS 11:57
PROVIDERS: ADMIT Internal Medicine; ATTEND Internal Medicine
DX: I26.99 Other pulmonary embolism without acute cor pulmonale (principal); J90 Pleural effusion, not elsewhere classified; J98.11 Atelectasis; E66.2 Morbid (severe) obesity with alveolar hypoventilation; Z68.43 Body mass index [BMI] 50.0-59.9, adult; T38.4X5A Adverse effect of oral contraceptives, initial encounter; E78.5 Hyperlipidemia, unspecified; K21.9 Gastro-esophageal reflux disease without esophagitis; J44.9 Chronic obstructive pulmonary disease, unspecified; I11.0 Hypertensive heart disease with heart failure; I50.9 Heart failure, unspecified; E11.40 Type 2 diabetes mellitus with diabetic neuropathy, unspecified; E03.9 Hypothyroidism, unspecified; L30.9 Dermatitis, unspecified; J30.9 Allergic rhinitis, unspecified; M10.9 Gout, unspecified; I35.0 Nonrheumatic aortic (valve) stenosis; H54.7 Unspecified visual loss; M19.90 Unspecified osteoarthritis, unspecified site; F32.9 Major depressive disorder, single episode, unspecified; Z87.440 Personal history of urinary (tract) infections; Z99.81 Dependence on supplemental oxygen; Z79.82 Long term (current) use of aspirin; Z79.899 Other long term (current) drug therapy; Z79.84 Long term (current) use of oral hypoglycemic drugs; Z79.01 Long term (current) use of anticoagulants
CPT/HCPCS: 36415; 71045; 71045-26; 71275; 71275-26; 80048; 80053; 83735; 83880; 84484; 85025; 85379; 93005; 93010; 93306; 93970; 93970-26; 94640; 94760; 94761; 96374; 97116-GP; 97162-GP; 97165-GO; 99284; 99285-25; A9270-GY; J2930; J7030; J7620-GY; Q9967

== ENCOUNTER 2021-12-23 14:35 | Emergency (ER) | payer OTHER, MEDICARE, BC ==
[2021-12-23 14:53] VITALS: BP 130/74; PULSE 98
[2021-12-23] MEDS: Lactated Ringers 1,000 ML IV SCH (15:10)
== END 2021-12-23 18:55 | disposition home or self-care (01) ==
LOC: JD.ED 14:35
DX: T68.XXXA Hypothermia, initial encounter (principal); E78.00 Pure hypercholesterolemia, unspecified; J44.9 Chronic obstructive pulmonary disease, unspecified; E11.40 Type 2 diabetes mellitus with diabetic neuropathy, unspecified; E03.9 Hypothyroidism, unspecified; Z79.01 Long term (current) use of anticoagulants; Z79.82 Long term (current) use of aspirin; Z79.899 Other long term (current) drug therapy; Z87.891 Personal history of nicotine dependence; V86.99XA Unspecified occupant of other special all-terrain or other off-road motor vehicle injured in nontraffic accident, initial encounter; Y92.410 Unspecified street and highway as the place of occurrence of the external cause
CPT/HCPCS: 36415; 71045; 71045-26; 80053; 84484; 85025; 85610; 85730; 93005; 99285-25; J7120

== ENCOUNTER 2025-03-29 06:50 | Day surgery (SDC) | payer MEDICARE ==
[~2025-03-29 06:50] MED LIST: Lidocaine 1% 4 ML ONE; Propofol 200 MG/20 ML SDV ONE; Sodium Chloride 0.9% 10 ML Syringe FLUSH PRN; Sodium Chloride 0.9% 10 ML Syringe FLUSH SCH
[2025-03-29] MEDS: Lactated Ringers 1,000 ML IV SCH (07:45)
[2025-03-29] MEDS ORDERED: Propofol 200 MG/20 ML SDV ONE (09:01)
[2025-03-29 09:41] VITALS: BP 124/76; PULSE 77
== END 2025-03-29 09:48 | disposition home or self-care (01) ==
LOC: JD.SDS 06:50
PROVIDERS: ATTEND Surgery
DX: Z12.11 Encounter for screening for malignant neoplasm of colon (principal); R19.5 Other fecal abnormalities; D12.2 Benign neoplasm of ascending colon; D12.3 Benign neoplasm of transverse colon; I25.10 Atherosclerotic heart disease of native coronary artery without angina pectoris; J44.9 Chronic obstructive pulmonary disease, unspecified; I13.0 Hypertensive heart and chronic kidney disease with heart failure and stage 1 through stage 4 chronic kidney disease, or unspecified chronic kidney disease; I50.9 Heart failure, unspecified; E11.22 Type 2 diabetes mellitus with diabetic chronic kidney disease; N18.30 Chronic kidney disease, stage 3 unspecified; E03.9 Hypothyroidism, unspecified; E78.00 Pure hypercholesterolemia, unspecified; Z87.891 Personal history of nicotine dependence; Z79.84 Long term (current) use of oral hypoglycemic drugs; Z79.890 Hormone replacement therapy; Z79.899 Other long term (current) drug therapy; Z88.0 Allergy status to penicillin
CPT/HCPCS: 45385; J2003; J2704; J7120; 00811; 88305